=== PATIENT | female | born 1970 | race Asian ===

== ENCOUNTER 2019-09-16 15:29 | Emergency (ER) | payer SELFPAY ==
[~2019-09-16] VITALS: Ht 154.9 cm; Wt 59.0 kg
[2019-09-16 15:33] VITALS: Ht 154.9 cm; Wt 59.0 kg
[2019-09-16 16:05] VITALS: BP 154/91
== END 2019-09-16 16:05 | disposition home or self-care (01) ==
LOC: ED 15:29
DX: B01.9 Varicella without complication (principal)

== ENCOUNTER 2019-09-24 11:57 | Emergency (ER) | payer SELFPAY ==
[~2019-09-24] VITALS: Ht 154.9 cm; Wt 58.1 kg
[2019-09-24 12:07] VITALS: BP 100/77; Ht 154.9 cm; Wt 58.1 kg
== END 2019-09-24 13:26 | disposition home or self-care (01) ==
LOC: ED 11:57
DX: B01.9 Varicella without complication (principal)